=== PATIENT | female | born 1955 | race African-American/Black ===

== ENCOUNTER 2017-11-13 14:51 | Emergency (ER) | payer MEDICAID, MEDICARE ==
[~2017-11-13] VITALS: Ht 165.1 cm; Wt 94.0 kg
[~2017-11-13 14:51] MED LIST: CYCL10TA7 PO
[2017-11-13] MEDS ORDERED: IBUPROFEN 400MG TABLET PO ONE (16:45)
[2017-11-13 17:03] VITALS: BP 126/81
== END 2017-11-13 18:05 | disposition home or self-care (01) ==
LOC: ER 14:51
DX: M25.561 Pain in right knee (principal); L08.9 Local infection of the skin and subcutaneous tissue, unspecified; J45.909 Unspecified asthma, uncomplicated; I10 Essential (primary) hypertension; E78.5 Hyperlipidemia, unspecified; Z87.891 Personal history of nicotine dependence
CPT/HCPCS: 73562; 99284

== ENCOUNTER 2018-10-25 18:20 | Emergency (ER) | payer MEDICAID ==
[~2018-10-25] VITALS: Ht 160 cm; Wt 102.0 kg
[2018-10-25 18:41] VITALS: BP 131/74
== END 2018-10-25 20:33 | disposition left against medical advice (07) ==
LOC: ER 18:20
DX: Z53.21 Procedure and treatment not carried out due to patient leaving prior to being seen by health care provider (principal)

== ENCOUNTER 2018-11-16 21:32 | Emergency (ER) | payer MEDICAID ==
[~2018-11-16] VITALS: Ht 152.4 cm; Wt 109.0 kg
[2018-11-17 00:13] VITALS: BP 126/53
== END 2018-11-17 06:11 | disposition left against medical advice (07) ==
LOC: ER 21:32
DX: Z53.21 Procedure and treatment not carried out due to patient leaving prior to being seen by health care provider (principal)

== ENCOUNTER 2018-11-20 21:31 | Emergency (ER) | payer MEDICAID ==
[~2018-11-20] VITALS: Ht 167.6 cm; Wt 75.0 kg
[2018-11-20 23:17] LABS: BASOPHILS % 0.8 % (0.0-2.0); EOSINOPHILS % 1.3 % (0.0-5.0); HEMATOCRIT. 34.2 % (36.0-48.0); HEMOGLOBIN. 11.3 g/dL (12.0-16.0); MEAN CORPUSCULAR HEMOGLOBIN 29.8 pg (28.0-32.0); MEAN CORPUSCULAR VOLUME 90.5 fL (81.0-99.0); MEAN PLATELET VOLUME 9.7 fl (7.4-10.4); MONOCYTES % 9.2 % (2.0-8.0); NEUTROPHILS % 54.7 % (40.0-76.0); PLATELET 232 x1000/uL (130-400); RED BLOOD CELL COUNT 3.78 mill/uL (4.2-5.4); RED CELL DISTRIBUTION WIDTH 14.3 % (11.6-14.6)
[2018-11-20 23:21] LABS: CHLORIDE 108 mEq/L (98-107)
[2018-11-20 23:23] LABS: PROTHROMBIN TIME 10.2 sec (9.1-11.1)
[2018-11-21 01:54] VITALS: BP 130/65
== END 2018-11-21 02:00 | disposition home or self-care (01) ==
LOC: ER 22:46
DX: R05 Cough (principal); E11.9 Type 2 diabetes mellitus without complications; I10 Essential (primary) hypertension; K80.20 Calculus of gallbladder without cholecystitis without obstruction; Z98.890 Other specified postprocedural states; Z79.899 Other long term (current) drug therapy
CPT/HCPCS: 36415; 71045; 80053; 82962; 83880; 84484; 85025; 85610; 93005; 99284; Z7610

== ENCOUNTER 2019-04-18 21:08 | Emergency (ER) | payer MEDICAID ==
[~2019-04-18] VITALS: Ht 152.4 cm; Wt 97.0 kg
[2019-04-18 21:33] VITALS: BP 129/67
== END 2019-04-19 01:18 | disposition left against medical advice (07) ==
LOC: ER 22:06
DX: R10.9 Unspecified abdominal pain (principal); Z53.21 Procedure and treatment not carried out due to patient leaving prior to being seen by health care provider
CPT/HCPCS: 82962

== ENCOUNTER 2019-06-18 19:44 | Emergency (ER) | payer MEDICAID ==
[~2019-06-18] VITALS: Ht 165.1 cm; Wt 95.0 kg
[2019-06-18 20:14] VITALS: BP 135/58
== END 2019-06-19 05:12 | disposition left against medical advice (07) ==
LOC: ER 19:44
DX: R10.9 Unspecified abdominal pain (principal); Z53.21 Procedure and treatment not carried out due to patient leaving prior to being seen by health care provider
CPT/HCPCS: 93005